=== PATIENT | male | born 1965 | race Caucasian/White ===

== ENCOUNTER 2017-06-03 15:49 | Emergency (ER) | payer SELFPAY ==
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
[2017-06-03 17:10] VITALS: BP 186/111
== END 2017-06-03 17:10 | disposition short-term general hospital (02) ==
LOC: UCEAST 15:49
DX: S09.90XA Unspecified injury of head, initial encounter (principal); V89.9XXA Person injured in unspecified vehicle accident, initial encounter; Y93.9 Activity, unspecified; Y92.9 Unspecified place or not applicable; Y99.9 Unspecified external cause status; Z87.891 Personal history of nicotine dependence
CPT/HCPCS: 99211; G0463

== ENCOUNTER 2017-06-03 17:39 | Inpatient (IN) | payer SELFPAY ==
--- NOTE | 2017-06-03 20:45 | RAD ---
INDICATION: Intracranial injury COMPARISON: None TECHNIQUE: Noncontrast axial source images were acquired from the skull base to the vertex. FINDINGS: Ventricles/sulci: The ventricles and cisterns are normal in size and configuration for age. Brain parenchyma: There is right subfrontal edema and there are multiple punctate foci of intraparenchymal hemorrhage. There is minor localized mass effect and there is mild bowing of the anterior falx. Intracranial hemorrhage: As above] frontal intraparenchymal hemorrhage. Extra-axial spaces: There is a small amount of hemorrhage along the tentorium on the right. Calvarium: There is no calvarial fracture or other calvarial abnormality. Scalp: Posterior scalp hematoma with laceration. Paranasal sinuses/mastoid: The paranasal sinuses and mastoid air cells are clear. Other: None. IMPRESSION: Right subfrontal edema and intraparenchymal hemorrhage. Findings called to ED
[2017-06-03 20:53] LABS: Hematocrit 42 % (42-52); Hemoglobin 14.1 g/dl (14.0-18.0); Mean Corpuscular HGB Conc 33 g/dl (31-36); Mean Corpuscular Hemoglobin 30 pg (27-31); Mean Corpuscular Volume 92 fL (80-94); Mean Platelet Volume 7 um3 (7.4-10.4); Red Blood Count 4.62 10^6/ul (4.0-5.4); Red Cell Distribution Width 14 % (10.5-15); White Blood Count 9.1 10^3/ul (3.5-10.8)
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
[2017-06-03 21:12] LABS: Albumin 4.5 g/dL (3.2-5.2); BUN/Creatinine Ratio 15.9 (8-20); Calcium 9.3 mg/dL (8.6-10.3); EGFR African American 94.1 (>60); EGFR Non-African American 73.2 (>60); Globulin 4.2 g/dL (2-4); Potassium 3.8 mmol/L (3.5-5.0); Total Bilirubin 0.8 mg/dL (0.2-1.0); Total Protein 8.7 g/dL (6.4-8.9)
[2017-06-03] MEDS ORDERED: Ondansetron INJ* 2 MG/ML VIAL IV PRN (21:42)
[2017-06-03] MEDS: Morphine INJ* 4 MG/ML 1 ML CARPUJECT IV PRN (22:21)
[2017-06-04 05:57] LABS: Hematocrit 38 % (42-52); Hemoglobin 12.6 g/dl (14.0-18.0); Mean Corpuscular HGB Conc 34 g/dl (31-36); Mean Corpuscular Hemoglobin 31 pg (27-31); Mean Corpuscular Volume 91 fL (80-94); Mean Platelet Volume 7 um3 (7.4-10.4); Red Blood Count 4.14 10^6/ul (4.0-5.4); Red Cell Distribution Width 13 % (10.5-15); White Blood Count 8.8 10^3/ul (3.5-10.8)
[2017-06-04 06:11] LABS: BUN/Creatinine Ratio 16.8 (8-20); Calcium 8.6 mg/dL (8.6-10.3); EGFR African American 107.9 (>60); EGFR Non-African American 83.9 (>60); Potassium 3.8 mmol/L (3.5-5.0)
[2017-06-04] MEDS: Morphine INJ* 4 MG/ML 1 ML CARPUJECT IV PRN (07:42)
--- NOTE | 2017-06-04 08:11 | RAD ---
INDICATION: Head injury, frontal contusion. COMPARISON: Comparison is made with a prior CT of the brain from June 03, 2017. TECHNIQUE: Contiguous axial sections of the brain were obtained from the skull base to the vertex without contrast. FINDINGS: There is intraparenchymal hemorrhagic contusion present in the inferior portion of the right frontal lobe with surrounding edema which appears unchanged from the prior study. There is a small subdural hematoma present along the right tentorium measuring up to 4 mm in thickness which unchanged from the prior study. These findings cause mild localized mass effect. No midline shift is seen. There is soft tissue swelling in the scalp adjacent to the left occipital bone. There is a linear nondisplaced fracture extending through the left occipital bone to the skull base and foramen magnum. No other fractures are seen. The visualized portion of the paranasal sinuses and mastoid air cells appear clear. The results of this exam were called to the intensive care unit nurse. IMPRESSION: 1. HEMORRHAGIC CONTUSION IN THE INFERIOR PORTION OF THE RIGHT FRONTAL LOBE, UNCHANGED. 2. SMALL SUBDURAL HEMATOMA ALONG THE RIGHT TENTORIUM, UNCHANGED. 3. NONDISPLACED FRACTURE OF THE LEFT OCCIPITAL BONE EXTENDING TO THE SKULL BASE.
[2017-06-04] MEDS: HYDROcodone/ACET. 7.5/325 LIQ* 15 ML UDC PO PRN ×2 (08:58→17:44)
--- NOTE | 2017-06-04 09:18 | RAD ---
INDICATION: Back pain. CT of the lumbar spine was obtained in the axial plane. Coronal and sagittal reconstructed images were obtained. The vertebral bodies appear normal in height. At L5-S1, there is a broad-based protrusion noted. There is a posterior lateral component of disc protrusion which may impinge upon the left exiting nerve root. At L4-L5, broad-based protrusion is noted. Vacuum disc phenomenon is noted. There is a right posterior lateral disc protrusion which narrows the right foramen. At L3-L4, minimal broad-based protrusion flattens the thecal sac. No central or foraminal stenosis is noted. At L2-L3, no focal protrusion is noted. No central or foraminal stenosis is noted. At L1-L2, no disc protrusion is identified. No fracture of the lumbar spine is noted. IMPRESSION: Multilevel degenerative disc disease without evidence of compression fracture.
[2017-06-04] MEDS: Acetaminophen ADULT LIQ* 650 MG/20.3 ML UDC PO PRN ×2 (11:52→20:06)
--- NOTE | 2017-06-04 13:41 | PN ---
Progress Note - Progress Note Date of Service: 06/04/17 SOAP: Subjective: []Doing well Minimal headache F?U CT done as well as CT of L/S spine Objective: [] Neuro intact Ecchymosis RT eye Assessment: []CT shows contusion unchange ,Occipital skull fracture noted Plan: []Stable Will transfer to floor
[2017-06-05] MEDS: Acetaminophen ADULT LIQ* 650 MG/20.3 ML UDC PO PRN ×2 (01:14→09:03)
[2017-06-05] MEDS: HYDROcodone/ACET. 7.5/325 LIQ* 15 ML UDC PO PRN ×4 (04:26→19:42)
[2017-06-06] MEDS: HYDROcodone/ACET. 7.5/325 LIQ* 15 ML UDC PO PRN ×5 (01:30→23:39)
--- NOTE | 2017-06-06 10:00 | PN ---
Progress Note - Progress Note Date of Service: 06/05/17 SOAP: Subjective: []Complains of persistent headache No nausea, vomiting Was not transferred to floor secondary to transient bradycardia Objective: []Neuro intact Right periorbital contusion unchanged Assessment: [] Slowly improving Plan: []Transfer to floor Increase activity level
--- NOTE | 2017-06-06 10:03 | PN ---
Progress Note - Progress Note Date of Service: 06/06/17 SOAP: Subjective: []Feels better this am Pain medicine increased yesterday No nausea More alert this AM Objective: []Neuro intact Assessment: []Slowly improving Plan: []Cont to increase activity
[2017-06-06] MEDS: Acetaminophen ADULT LIQ* 650 MG/20.3 ML UDC PO PRN (20:04)
[2017-06-07] MEDS ORDERED: Furosemide IV* 10 MG/ML 2 ML VIAL (20 MG) IV ONE (02:47)
[2017-06-07] MEDS ORDERED: hydrALAZINE IV* 20 MG/ML VIAL IV SLOW PU PRN (02:49)
[2017-06-07] MEDS: Morphine INJ* 4 MG/ML 1 ML CARPUJECT IV PRN ×2 (03:11→16:02)
[2017-06-07] MEDS: Lisinopril TAB* 10 MG PO SCH (03:29)
[2017-06-07] MEDS: HYDROcodone/ACET. 7.5/325 LIQ* 15 ML UDC PO PRN ×4 (06:00→22:00)
--- NOTE | 2017-06-07 08:51 | RAD ---
Indication: RIGHT frontal hemorrhagic contusion. Persistent pain. Comparison: June 04, 2017 Technique: Noncontrast CT vertex of skull through foramen magnum. Report: Hyperdense intra-axial hematoma at the orbital gyri at the base of the RIGHT frontal lobe is unchanged in magnitude. Associated decreased density in the RIGHT frontal lobe white matter mildly increased in magnitude compared with the previous exam. In addition there is subdural hematoma layering along the RIGHT tentorium cerebelli without change. Mild sulcal effacement at the RIGHT frontal and occipital lobes. 3 mm leftward shift at the level of the septum pellucidum. The basal cisterns remain patent and symmetric. Unremarkable ventricles. No new region of intra or extra-axial hemorrhage evident. Nondisplaced LEFT occipital fracture. No additional calvarial or skull base fracture evident. Mild infiltrative LEFT occipital parietal scalp hematoma without significant change. IMPRESSION: Compared with the June 04, 2017 exam there is increased white matter edema seen in association with the hemorrhagic contusion at the RIGHT frontal lobe. Additionally there is unchanged volume of subdural hematoma layering along the RIGHT tentorium cerebelli. Unchanged magnitude of leftward midline shift at the level of the septum pellucidum.
[2017-06-07] MEDS ORDERED: Furosemide TAB* 20 MG ONE (10:04)
[2017-06-07] MEDS: Furosemide TAB* 20 MG PO SCH ×2 (10:06→17:30)
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
[2017-06-07 15:49] LABS: Potassium 4.1 mmol/L (3.5-5.0)
[2017-06-08] MEDS: Morphine INJ* 4 MG/ML 1 ML CARPUJECT IV PRN (01:01)
[2017-06-08] MEDS: HYDROcodone/ACET. 7.5/325 LIQ* 15 ML UDC PO PRN ×2 (03:29→12:19)
[2017-06-08] MEDS ORDERED: Magnesium Hydroxide LIQ* 30 ML UDC PO ONE (07:37)
[2017-06-08] MEDS ORDERED: Docusate LIQ* 100 MG/10 ML UDC PO PRN (07:37)
--- NOTE | 2017-06-08 08:18 | PN ---
Progress Note - Progress Note Date of Service: 06/08/17 SOAP: Subjective: []Feels better this AM Had better day yesterday but still requiring morphine for headache Objective: []Neuro intact BP trending downward Assessment: []Slow progress Plan: []Try to hold Morphine today Home when pain controlled with PO meds
[2017-06-08] MEDS: Lisinopril TAB* 10 MG PO SCH (08:43)
[2017-06-08 14:28] VITALS: BP 133/69
== END 2017-06-08 15:15 | disposition home or self-care (01) | DRG 87 ==
LOC: ED 17:39 → ICU 21:36 → SSU 06-05 10:50
PROVIDERS: ADMIT Neurological Surgery; ATTEND Neurological Surgery
DX: S02.119A Unspecified fracture of occiput, initial encounter for closed fracture (principal); S06.5X0A Traumatic subdural hemorrhage without loss of consciousness, initial encounter; R00.1 Bradycardia, unspecified; S06.340A Traumatic hemorrhage of right cerebrum without loss of consciousness, initial encounter; V89.9XXA Person injured in unspecified vehicle accident, initial encounter; Y92.410 Unspecified street and highway as the place of occurrence of the external cause; Z82.49 Family history of ischemic heart disease and other diseases of the circulatory system; Z87.891 Personal history of nicotine dependence
CPT/HCPCS: 36415; 70450; 72131; 80048; 80051; 80053; 85025; 85610; 87641; 99284; A9270-GY; J0360; J1940; J2270; J2405